=== PATIENT | female | born 1940 | race Caucasian/White ===

== ENCOUNTER 2016-08-30 10:52 | Outpatient (CLI) | payer MEDICARE, OTHER ==
[~2016-08-30] VITALS: Ht 165.1 cm; Wt 84.1 kg
[~2016-08-30 10:52] MED LIST: MULTI-DAY VITAM1 TAB PO; NORCO 10/325 TA1 TA1 PO; ZESTRIL40 MG PO
[2016-08-30] MEDS ORDERED: XARELTO20 MG PO (11:59)
[2016-08-30 12:01] VITALS: Ht 165.1 cm; Wt 84.1 kg
--- NOTE | 2016-08-30 12:03 | NUR ---
1150-60 MG OF PROLIA INJECTION GIVEN IN RIGHT ARM PT TOLERATED WELL LOT# [id number] EXP: 10/23 1200-PT DISCHARGED HOME IN STABLE CONDITION. WITHOUT ANY DIFFICULTIES. INFORMATION SHEETS FOR MEDICATION GIVEN. PT STATES UNDERSTANDING AND DISCHARGED HOMEIN STABLE CONDITION
== END 2016-08-30 12:00 | disposition home or self-care (01) ==
LOC: D.OPS 10:52
DX: M81.0 Age-related osteoporosis without current pathological fracture (principal)

== ENCOUNTER 2017-02-28 13:00 | Outpatient (CLI) | payer MEDICARE, OTHER ==
[~2017-02-28 13:00] MED LIST changes: +XARELTO20 MG PO
[2017-02-28 14:51] VITALS: BP 147/77; BMI 31.6
== END 2017-02-28 14:55 | disposition home or self-care (01) ==
LOC: D.OPS 13:00
DX: M81.0 Age-related osteoporosis without current pathological fracture (principal)

== ENCOUNTER 2017-09-04 10:41 | Outpatient (CLI) | payer MEDICARE, OTHER ==
[~2017-09-04] VITALS: Ht 165.1 cm; Wt 85.5 kg
[2017-09-04 10:53] VITALS: Ht 165.1 cm; Wt 85.5 kg
== END 2017-09-04 11:01 | disposition home or self-care (01) ==
LOC: D.OPS 10:41
DX: M81.0 Age-related osteoporosis without current pathological fracture (principal)

== ENCOUNTER 2018-03-12 12:26 | Outpatient (CLI) | payer MEDICARE, OTHER ==
[~2018-03-12] VITALS: Ht 162.6 cm; Wt 81.8 kg
[2018-03-12 13:26] VITALS: Ht 162.6 cm; Wt 81.8 kg
== END 2018-03-12 13:49 | disposition home or self-care (01) ==
LOC: D.OPS 12:26
DX: M81.0 Age-related osteoporosis without current pathological fracture (principal); Z01.812 Encounter for preprocedural laboratory examination

== ENCOUNTER 2018-09-10 12:22 | Outpatient (CLI) | payer MEDICARE, OTHER ==
[2018-03-12 13:26] VITALS: BMI 30.9
== END 2018-09-10 13:07 | disposition home or self-care (01) ==
LOC: D.OPS 12:22
PROVIDERS: ATTEND Family Medicine
DX: M81.0 Age-related osteoporosis without current pathological fracture (principal)

== ENCOUNTER 2019-11-02 17:13 | Inpatient (IN) | payer MEDICARE, OTHER ==
[~2019-11-02] VITALS: Ht 162.6 cm; Wt 79.4 kg
[2019-11-02 18:03] VITALS: BP 113/60
[2019-11-02 18:12] LABS: BASOPHILS 0.1 % (0-2); EOSINOPHILS 0.1 % (0-7); HEMATOCRIT 39.7 % (36.0-48.0); HEMOGLOBIN 12.8 g/dL (12-16); IMMATURE GRANULOCYTES 0.3 % (0-5); LYMPHOCYTES 6.6 % (15-50); MCHC 32.2 g/dL (31.0-37.0); MEAN PLATELET VOLUME 11.5 fL (7.4-10.4); MONOCYTES 8.5 % (2-11); NEUTROPHILS 84.4 % (40-80); RBC 4.41 10x6/uL (4.00-5.40); RDW 14.5 % (11.5-14.5)
[2019-11-02 18:13] LABS: PLATELET COUNT 161 10x3/uL (130-400)
[2019-11-02 18:15] LABS: ANION GAP 16.5 mmol/L (8-16); CALCIUM 8.6 mg/dL (8.5-10.1); CARBON DIOXIDE 22.4 mmol/L (21.0-32.0); CREATININE - SERUM 2.1 mg/dL (0.6-1.3); POTASSIUM - SERUM 4.9 mmol/L (3.5-5.1)
--- NOTE | 2019-11-02 18:31 | NUR ---
PT LEFT ED VIA [facility] FOR CT
[2019-11-02 18:36] LABS: ALBUMIN 3.4 g/dL (3.4-5.0); BILIRUBIN - TOTAL 1.28 mg/dL (0.2-1.3); PROTEIN - SERUM 6.9 g/dL (6.4-8.2)
[2019-11-02 18:41] LABS: TROPONIN-I 1.081 ng/mL (0.000-0.060)
[2019-11-02 19:00] VITALS: BP 106/65
[2019-11-02 19:09] LABS: APTT 51.3 SECONDS (22.8-39.4); INR 1.22 (0.85-1.17); PROTIME 15.3 SECONDS (11.6-15.0)
[2019-11-02 19:53] VITALS: BP 102/53
[2019-11-02 20:02] LABS: BILIRUBIN NEGATIVE (NEGATIVE); GLUCOSE NEGATIVE (NEGATIVE); KETONE NEGATIVE (NEGATIVE); NITRITE NEGATIVE (NEGATIVE); SPECIFIC GRAVITY 1.025 (1.005-1.020); UROBILINOGEN NORMAL (NORMAL)
[2019-11-02 20:06] LABS: BACTERIA MODERATE /hpf (NEGATIVE); EPITHELIAL CELLS 0-5 /hpf (0-5); RED CELLS - URINE NONE SEEN /hpf (0-5); WHITE CELLS - URINE 0-5 /hpf (NEGATIVE)
[2019-11-02 20:07] LABS: AMORPHOUS SEDIMENT >1+ /lpf (NONE SEEN)
[2019-11-02 21:05] VITALS: BP 100/44
--- NOTE | 2019-11-02 22:08 | NUR ---
NUCLEAR MEDICINE HERE TO TAKE PATIENT FOR LUNG SCAN.
[2019-11-02 23:55] LABS: CKMB 8.7 U/L (0.0-3.6); CREATINE KINASE 125 UL (21-215); TROPONIN-I 1.604 ng/mL (0.000-0.060)
--- NOTE | 2019-11-03 00:03 | NUR ---
PAGED DR. ROLON TO REPORT VQ SCAN RESULTS
--- NOTE | 2019-11-03 01:10 | HP ---
PATIENT: JEFF DOMINGUEZ MEDICAL RECORD: [id number] ACCOUNT: [id number] LOCATION:[address] : 42 ADMISSION DATE: 11/02/19 PCP: No PCP HISTORY AND PHYSICAL EXAMINATION CHIEF COMPLAINT: Left flank and abdominal pain. HISTORY OF PRESENT ILLNESS: This is a 79-year-old female who is followed by Dr. Jones for hypertension. She is followed by Dr. Roberson for left breast cancer and non-small cell lung cancer. She sees him monthly, but unfortunately, I do not have any notes where her lab in our office, but we will get them. She states that she was getting some physical therapy on her back about 4 days ago when experienced some chest pain then, maybe some shortness of breath, but she states this happens at the end of physical therapy, all that went away, but the next day, she started having this pain in the left flank area, wrapping around to the left upper quadrant of her abdomen. She states that it was accompanied at times over the last 3 days with some chest pain, a little shortness of breath, no cough, no muscle aches or pains. She states at times with certain movements the pain would take her breath away. This morning, though she got up to go the bathroom and she felt like she was going to pass out, she leaned forward. She felt weaker. She continued with his left-sided abdominal pain and her brought her in to the Emergency Department; evaluation there showed a normal CBC, basic metabolic panel was essentially normal except her creatinine is 2.1 (the last creatinine I could find was from [facility] over a year ago and it was around 1.0). Liver functions were okay. INR was okay. D-dimer was really high at 19.98 and troponin was elevated at 1.081. She is admitted for further evaluation. PAST MEDICAL HISTORY: Hypertension, she was diagnosed with left breast cancer in April 2015. She was then diagnosed with right upper lobe non-small cell lung cancer in June 2015. She had an extensive right lower extremity DVT in 2015 and was on Xarelto. PAST SURGICAL HISTORY: She has had both shoulder fractures repaired. She has had a hysterectomy. She had a left lumpectomy in April 2015 and she had a right upper lobe of the lung lobectomy done. She has had a port placement. ALLERGIES: DEMEROL AND REGLAN. CURRENT MEDICATIONS: She takes Letrozole 2.5 mg daily, another medicine prescribed by Dr. Roberson and lisinopril 40 mg twice a day. She has taken tramadol, prescribed by Dr. Roberson only rarely. She takes CoQ 10. SOCIAL HISTORY: , retired. HABITS: Former smoker, occasional alcohol, no illicit drug use. FAMILY HISTORY: Father of myocardial infarction. Mother in a car accident. Sister of breast cancer. REVIEW OF SYSTEMS: GENERAL: No major weight changes. HEENT: No particular sinus or allergy problems. RESPIRATORY: No history of emphysema or COPD, but she had the right upper lobe lung cancer. HISTORY AND PHYSICAL [id number] JEFF DOMINGUEZ P GASTROINTESTINAL: No significant reflux problems. She had a colonoscopy earlier this year by Dr. To. GENITOURINARY: No significant problems there. MUSCULOSKELETAL: No significant problems there. NEUROLOGIC: No migraines or seizures. PSYCHIATRIC: Denies depression or melancholia. PHYSICAL EXAMINATION: VITAL SIGNS: Temperature 97.7, heart rate 63, respirations 18, and blood pressure 100/44. GENERAL: She is awake and alert. She does not appear to be in acute distress at this time. SKIN: Warm and dry. is at bedside. HEENT: Grossly within normal limits. NECK: Supple. No JVD or bruit. HEART: Regular rate and rhythm without murmur. LUNGS: Clear. ABDOMEN: Soft, nontender. I cannot reproduce any of the pain that she has. EXTREMITIES: No edema. NEUROLOGIC: Grossly intact. LABORATORY DATA: Urinalysis shows yellow cloudy urine with 3+ protein, otherwise unremarkable. CBC with a white count of 9000, hemoglobin 12.8, and hematocrit 39.7. Basic metabolic panel: Sodium 136, potassium 4.9, chloride 102, CO2 22.4, BUN 24, creatinine 2.1, glucose 192, and calcium 8.6. Liver functions are okay. INR 1.22. D-dimer elevated at 19.98. Troponin elevated at 1.081. Amylase and lipase were all okay. IMAGING: Chest x-ray done showed patchy opacities in the right lung base laterally. There was a right upper lobe nodule that shows decreased size compared to previous chest x-ray. CT of the abdomen and pelvis without contrast showed scattered atelectasis in the lung bases did not mention the patchy opacities found in the chest x-ray. There was a "mass like" hyperdense area in or around the gallbladder and the pancreas showed atrophy. Ultrasound of the abdomen was done showed mild thickening of the gallbladder wall. This was nonspecific. A V/Q scan has just been done and patient just got back to her room when I came in and saw her. ASSESSMENT: 1. Left lower chest/left upper abdominal pain. 2. Elevated troponin. 3. Elevated D-dimer. 4. Elevated creatinine with unsure baseline. 5. History of left breast cancer. 6. History of right upper lobe non-small cell lung cancer. 7. History of extensive right lower extremity deep venous thrombosis. PLAN: We will follow up results of VQ scan. She is being treated as if she has PE placed on Lovenox at proper doses. Cardiology is being consulted for the elevated troponin. We need to try to get some previous labs from Dr. Roberson to see if he checks creatinine to see what her baseline is. will bring the 2 breasts cancer drugs from home tomorrow morning for her to resume and continue. Other tests and procedures as warranted. TRANSINT:[id number] Voice Confirmation ID: [id number] DOCUMENT ID: [id number] HISTORY AND PHYSICAL [id number] JEFF DOMINGUEZ WILLIAM MD at 0110 CC: [id number] DICTATION DATE: 11/02/192323 INDEPENDENT CONTRACTOR: 11/03/19 0007 ADM IN [facility] [address] [id number]
--- NOTE | 2019-11-03 01:16 | NUR ---
RECEIVED PATIENT PATIENT TO ROOM 2101 VIA STRETCHER @ 2145. PATIENT IS AAOX4, UP WITH MINIAL ASSISTANCE. IV TO RT CHEST INFUSAPORT INFUSING NS @ 75ML/HR. NO S/S OF DISTRESS OBSERVED, RR EVEN AND UNLABORED ON 2L O2 VIA NC. PATIENT DENIES NEEDS AT THIS TIME. QUICK START, MED REC, ADULT HX, SRS, FPOC ALL COMPLETED. TELEMTRY APPLIED. CL IN REACH, BED LOCKED AND LOWERED. WILL CTM.
[2019-11-03 03:44] VITALS: BP 118/51; BMI 30.1
[2019-11-03 04:30] VITALS: BP 91/48
[2019-11-03 05:28] LABS: BASOPHILS 0.1 % (0-2); EOSINOPHILS 0 % (0-7); HEMATOCRIT 37.3 % (36.0-48.0); HEMOGLOBIN 11.7 g/dL (12-16); IMMATURE GRANULOCYTES 0.4 % (0-5); LYMPHOCYTES 14.5 % (15-50); MCH 28.7 pg (26.0-34.0); MCHC 31.4 g/dL (31.0-37.0); MCV 91.4 fL (80.0-100.0); PLATELET COUNT 161 10x3/uL (130-400); RBC 4.08 10x6/uL (4.00-5.40); WBC 8.5 10x3/uL (4.8-10.8)
[2019-11-03 05:58] LABS: CALCIUM 7.7 mg/dL (8.5-10.1); CARBON DIOXIDE 24.7 mmol/L (21.0-32.0); CHLORIDE - SERUM 105 mmol/L (98-107); CKMB 7.9 U/L (0.0-3.6); CREATINE KINASE 105 UL (21-215); SODIUM 137 mmol/L (136-145); UREA NITROGEN 29 mg/dL (7-18)
[2019-11-03 06:05] LABS: CALC OSMOLALITY 281 mosm/kg (275-300); CREATININE - SERUM 2.9 mg/dL (0.6-1.3); GLUCOSE 133 mg/dL (74-106)
[2019-11-03 06:06] LABS: TROPONIN-I 1.577 ng/mL (0.000-0.060); eGFR NON AFRICAN AMERICAN 17 mL/min (90-120)
[2019-11-03 06:08] LABS: POTASSIUM - SERUM 6.2 mmol/L (3.5-5.1)
--- NOTE | 2019-11-03 06:09 | NUR ---
LAB CALLED WITH CRITICAL POTASSIUM OF 6.2
[2019-11-03 09:00] VITALS: BP 113/58
[2019-11-03 09:25] LABS: ANION GAP 15.5 mmol/L (8-16); CALCIUM 7.7 mg/dL (8.5-10.1); CREATININE - SERUM 3.2 mg/dL (0.6-1.3); POTASSIUM - SERUM 5.5 mmol/L (3.5-5.1)
[2019-11-03 11:00] VITALS: BP 110/52
[2019-11-03] MEDS ORDERED: TAGRISSO PO (12:40)
[2019-11-03] MEDS ORDERED: LETROZOLE PO (12:43)
[2019-11-03 15:00] VITALS: BP 102/45
--- NOTE | 2019-11-03 17:31 | NUR ---
I have reviewed this patient and I concur with the Shift Assessment completed by the Licensed Practical Nurse today this shift.
--- NOTE | 2019-11-03 18:00 | NUR ---
PT HAS BEEN ALERT AND ORIENTED ALL DAY. AFTER SEEING ALL HER CONSULTING AND PRIMARY DOCTORS THIS AM, PT WAS PROVIDED WITH MEALS. HAS VOMMITED TWICE BUT OTHERWISE WITH MODERATE NAUSEA BUT SO FAR TOLERATING SUPPER WELL. C/O PAIN IN HER LEFT RIB AREA WHICH SHE BELIEVES IS D/T TO THE ECHO THIS MORNING. CAME OT BEDSIDE FOR SEVERAL HOURS. SPOKE TO DR. PEREA, ORDERED PRN PAIN MEDS PER HIS ORDER. NO CURRENT COMPLAINTS/CONCERNS, ALL QUESTIONS ANSWERED TO THE BEST OF MY ABILITY. CL IN REACH, SRX2.
--- NOTE | 2019-11-03 19:00 | NUR ---
REPORT RECEIVED, WILL CONTINUE POC. PATIENT IS AAOX4, LYING IN SEMI-FOWLERS POSITION. NO S/S OF DISTRESS OBSERVED, RR EVEN AND UNLABORED ON 2L O2 VIA NC. AT BEDSIDE. PATIENT DENIES NEEDS AT THIS TIME. CL IN REACH, BED LOCKED AND LOWERED. WILL CTM.
[2019-11-03 20:08] VITALS: Ht 162.6 cm; Wt 79.4 kg
[2019-11-03 21:21] VITALS: BP 113/70
[2019-11-04 01:04] VITALS: BP 105/50
[2019-11-04 04:00] VITALS: BP 123/60
[2019-11-04 04:23] LABS: BASOPHILS 0.1 % (0-2); EOSINOPHILS 0.5 % (0-7); HEMATOCRIT 34.6 % (36.0-48.0); HEMOGLOBIN 10.7 g/dL (12-16); IMMATURE GRANULOCYTES 0.5 % (0-5); LYMPHOCYTES 13.6 % (15-50); MCH 28.5 pg (26.0-34.0); MCHC 30.9 g/dL (31.0-37.0); MCV 92.3 fL (80.0-100.0); MEAN PLATELET VOLUME 11.2 fL (7.4-10.4); NEUTROPHILS 69.3 % (40-80); PLATELET COUNT 138 10x3/uL (130-400); RBC 3.75 10x6/uL (4.00-5.40); RDW 14.9 % (11.5-14.5); WBC 7.6 10x3/uL (4.8-10.8)
[2019-11-04 04:54] LABS: ALBUMIN 2.8 g/dL (3.4-5.0); ANION GAP 14.8 mmol/L (8-16); BILIRUBIN - TOTAL 0.41 mg/dL (0.2-1.3); CALCIUM 7.1 mg/dL (8.5-10.1); CARBON DIOXIDE 21.6 mmol/L (21.0-32.0); POTASSIUM - SERUM 5.4 mmol/L (3.5-5.1); PROTEIN - SERUM 5.9 g/dL (6.4-8.2); URIC ACID 8.5 mg/dL (2.6-7.2)
[2019-11-04 05:03] LABS: CREATININE - SERUM 4.2 mg/dL (0.6-1.3)
--- NOTE | 2019-11-04 08:00 | NUR ---
PT RECEIVED AWAKE AND ALERT. COMPLAINTS OF PAIN. MED GIVEN. ZOFRAN GTT STARTED.
[2019-11-04 09:00] VITALS: BP 124/61
[2019-11-04 11:00] VITALS: BP 105/57
[2019-11-04 15:00] VITALS: BP 95/53
--- NOTE | 2019-11-04 19:10 | NUR ---
PT EDUCATED ON PAIN MED USE AND PAIN MEDS REGARDED TOMORROWS PROCEDURE BED LOW AND LOCKED OTHER NEEDS SEEN TO
[2019-11-04 20:00] VITALS: BP 120/60
[2019-11-05] VITALS: BP 128/58
[2019-11-05 04:00] VITALS: BP 143/69
[2019-11-05 04:53] LABS: BASOPHILS 0.1 % (0-2); EOSINOPHILS 0.7 % (0-7); HEMATOCRIT 34.1 % (36.0-48.0); HEMOGLOBIN 10.7 g/dL (12-16); IMMATURE GRANULOCYTES 0.4 % (0-5); LYMPHOCYTES 14.6 % (15-50); MCH 29.1 pg (26.0-34.0); MCHC 31.4 g/dL (31.0-37.0); MCV 92.7 fL (80.0-100.0); MEAN PLATELET VOLUME 11.3 fL (7.4-10.4); NEUTROPHILS 67.2 % (40-80); RBC 3.68 10x6/uL (4.00-5.40); RDW 14.7 % (11.5-14.5); WBC 7.1 10x3/uL (4.8-10.8)
[2019-11-05 04:57] LABS: PLATELET COUNT 177 10x3/uL (130-400)
[2019-11-05 05:00] LABS: ANION GAP 15.5 mmol/L (8-16); CARBON DIOXIDE 19.3 mmol/L (21.0-32.0); CREATININE - SERUM 3.8 mg/dL (0.6-1.3); POTASSIUM - SERUM 4.8 mmol/L (3.5-5.1)
--- NOTE | 2019-11-05 08:30 | NUR ---
PT WENT FOR GASTRIC EMPTYING SCAN
--- NOTE | 2019-11-05 10:30 | NUR ---
PT BACK FROM GASTRIC EMPTYING NO PROBLEMS TOLERATED WELL
[2019-11-05 11:08] VITALS: BP 126/54
--- NOTE | 2019-11-05 12:17 | NUR ---
Nutrition Follow-up: Pt not in room at time of visit this AM. NPO for GES. Diet: NPO PO intake: 58% avg yesterday Wt: 175# (11/02) Labs noted: Glu 116, Ca 7.0, K+ 4.8 Meds noted: Zofran, Pepcid, NS @ 75, electrolyte protocol -Rec resume diet following procedure as medically feasible. -Monitor wt. -RD following.
[2019-11-05 13:09] VITALS: BP 136/70
[2019-11-05 14:10] LABS: ACLA - IGG AB <9 GPL U/mL (0-14); ACLA - IGM AB <9 MPL U/mL (0-12); ANA REFLEX - DIRECT Negative (Negative)
--- NOTE | 2019-11-05 15:53 | NUR ---
I have reviewed this patient and I concur with the Shift Assessment completed by the Licensed Practical Nurse today this shift.
--- NOTE | 2019-11-05 19:00 | NUR ---
REPORT RECEIVED, WILL CONTINUE POC. PATIENT IS AAOX4, SITTING UP IN BED. NO S/S OF DISTRESS OBSERVED. RR EVEN AND UNLABORED ON 2L O2 VIA NC. PATIENT WANTS PRN TRAMADOL WITH HS MEDS. PATIENT DENIES FURTHER NEEDS AT THIS TIME. CL IN REACH, BED LOCKED AND LOWERED. WILL CTM.
[2019-11-05 20:00] VITALS: BP 135/56
[2019-11-06] VITALS: BP 131/76
--- NOTE | 2019-11-06 03:51 | NUR ---
I have reviewed this patient and I concur with the Shift Assessment completed by the Licensed Practical Nurse today this shift.
[2019-11-06 04:00] VITALS: BP 140/55
[2019-11-06 05:17] LABS: ANION GAP 14.6 mmol/L (8-16); CARBON DIOXIDE 22.4 mmol/L (21.0-32.0); CREATININE - SERUM 3.1 mg/dL (0.6-1.3)
[2019-11-06 05:39] LABS: BASOPHILS 0 % (0-2); EOSINOPHILS 1.3 % (0-7); HEMATOCRIT 32.3 % (36.0-48.0); HEMOGLOBIN 10.1 g/dL (12-16); IMMATURE GRANULOCYTES 0.6 % (0-5); LYMPHOCYTES 12.8 % (15-50); MCH 28.8 pg (26.0-34.0); MCHC 31.3 g/dL (31.0-37.0); MEAN PLATELET VOLUME 11.5 fL (7.4-10.4); MONOCYTES 19.2 % (2-11); NEUTROPHILS 66.1 % (40-80); PLATELET COUNT 153 10x3/uL (130-400); RBC 3.51 10x6/uL (4.00-5.40); RDW 14.8 % (11.5-14.5)
[2019-11-06 05:40] LABS: WBC 5.2 10x3/uL (4.8-10.8)
[2019-11-06 05:43] LABS: CALCIUM 6.6 mg/dL (8.5-10.1)
[2019-11-06 09:46] VITALS: BP 156/76
--- NOTE | 2019-11-06 10:30 | NUR ---
LABS DRAWN FROM PORT AND SENT WITH LAB.
[2019-11-06 11:08] LABS: PHOSPHOROUS 2.6 mg/dL (2.5-4.9)
[2019-11-06 12:00] VITALS: BP 161/74
[2019-11-06 16:00] VITALS: BP 135/85
[2019-11-07] VITALS: BP 160/78
[2019-11-07 04:00] VITALS: BP 167/81
[2019-11-07 04:08] LABS: LUPUS - INTERPRETATION Comment: (()); LUPUS - THROMBIN TIME 14.3 sec (0.0-23.0); LUPUS - dRVVT 40.2 sec (0.0-47.0); PTT-LA 49.1 sec (0.0-51.9)
[2019-11-07 05:34] LABS: BASOPHILS 0.2 % (0-2); EOSINOPHILS 1.9 % (0-7); HEMATOCRIT 32.6 % (36.0-48.0); HEMOGLOBIN 10.2 g/dL (12-16); IMMATURE GRANULOCYTES 0.4 % (0-5); LYMPHOCYTES 18.4 % (15-50); MCH 28.4 pg (26.0-34.0); MCHC 31.3 g/dL (31.0-37.0); MCV 90.8 fL (80.0-100.0); MEAN PLATELET VOLUME 11.2 fL (7.4-10.4); MONOCYTES 16.5 % (2-11); NEUTROPHILS 62.6 % (40-80); PLATELET COUNT 183 10x3/uL (130-400); RBC 3.59 10x6/uL (4.00-5.40); RDW 14.5 % (11.5-14.5); WBC 4.8 10x3/uL (4.8-10.8)
[2019-11-07 05:40] LABS: ANION GAP 13.8 mmol/L (8-16); CARBON DIOXIDE 22.7 mmol/L (21.0-32.0); POTASSIUM - SERUM 4.5 mmol/L (3.5-5.1)
[2019-11-07 06:04] LABS: CREATININE - SERUM 2.2 mg/dL (0.6-1.3)
[2019-11-07 09:26] VITALS: BP 166/82
--- NOTE | 2019-11-07 11:04 | NUR ---
PATIENT IS NPO FOR PIPIDA SCAN AROUND 1400 TODAY. LAST ULTRAM WAS 0445. STATES TO HAVING UPPER ABDOMINAL ISSUES X COUPLE MONTHS. RIGHT INFUSAPORT SEEN WITH NS INFUSING AT 75 CC/HR, ZOFRAN GTT INFUSING AT 4.7 CC/HR. STATES TO SILL HAVING SOME SLIGHT NAUSEA. ON HEART MONITOR SHOWING CAF, HR 85. ON EP, K+ IS 4.5. ON 2L PER NC, STATES TO NOT WEARING OXYGEN AT HOME. CPOC, REFUSED TO WEAR NON SKID SOCKS.
--- NOTE | 2019-11-07 11:07 | NUR ---
Nutrition Follow-up: Pt still not eating well and continues to report N/V. GES on 11/04 consistent with delayed gastric emptying. Pt reports last BM 11/04; +flatus. Agreed to try Nepro at lunch today. Diet: Renal Wt: 175# (11/02) Labs noted: K+ 4.5, Ca 7.0 Meds noted: Zofran, Pepcid, NS @ 75, electrolyte protocol -Encourage PO intake and honor food preferences within diet restrictions. -Send Nepro with lunch today for pt trial. -Monitor wt. -RD following.
[2019-11-07 11:10] LABS: PROTEIN S - FREE 52 % (57-157); PROTEIN S - FUNCTIONAL 42 % (63-140); PROTEIN S - TOTAL 88 % (60-150)
[2019-11-07 12:00] VITALS: BP 178/84
[2019-11-07 12:10] LABS: ANTITHROMBIN III ACTIVITY 104 % (75-135); PLASMINOGEN ACTIVITY 94 % (70-150)
--- NOTE | 2019-11-07 14:00 | NUR ---
STILL AWAITING PIPIDA SCAN, NPO. SPOUSE AT BEDSIDE.
--- NOTE | 2019-11-07 15:03 | NUR ---
I CALLED TO RADIOLOGY TO SEE HOW MUCH LONGER FOR PIPIDA SCAN. THEY STATE THEY SHOULD BE HERE SHORTLY FOR HER. THIS IS RELAYED TO THE PATIENT.
[2019-11-07 15:11] LABS: MITOCHONDRIAL ANTIBODY <20.0 Units (0.0-20.0)
--- NOTE | 2019-11-07 16:26 | MORECARE ---
CASE MANAGEMENT DISCHARGE SUMMARY PATIENT: JEFF DOMINGUEZ UNIT: [id number] ADM DATE: 11/02/19 AGE: 79 : 42 SEX: F ROOM/BED: D.6329 AUTHOR: NICOLE,DOC PHYSICIAN: REFERRING PHYSICIAN: ROSE ANTONIO MD DATE OF SERVICE: 11/07/19 Discharge Plan Patient Name: JEFF DOMINGUEZ Facility: [facility]:[place] : 1940 Planned Disposition: Home Anticipated Discharge Date: Discharge Date: Expected LOS: Initial Reviewer: [email or web address] Initial Review Date: 11/02/2019 Generated: 11/07/19 5:25 pm Comments DCP- Discharge Planning Updated by [email or web address]: Nay Gonzalez on 11/07/19 3:[address] Patient Name: JEFF DOMINGUEZ Admission Status: ER Accout number: [id number] Admission Date: 11-02-2019 : 1940 Admission Diagnosis:UNSPECIFIED ABDOMINAL PAIN Attending: ROSE ANTONIO Current LOS: 5 Anticipated DC Date: Planned Disposition: Home Primary Insurance: MEDICARE A & B Discharge Planning Comments: CM met with patient's spouse Gigi to complete initial dc planning assessment. CM educated patient on the CM role and verbal consent given by patient to complete assessment. Patient lives at home with family. Patient is independent. At discharge patient plans to return home and feels this is a safe discharge. CM discussed availability of home health, rehab services, and medical equipment. Patient will have family to transport home. Patient denied known discharge needs at this time. CM will continue to follow and will assist as needed with dc plans/needs. Mixer Foam Rubber: Nay Gonzalez DCP- Discharge Planning Updated by [email or web address]: Tatianna Sterling on 11/07/19 8:[address] CM has attempted X2 to see patient, but busy each time. DCPIA - Discharge Planning Initial Assessment Updated by [email or web address]: Nay Gonzalez on 11/07/19 4:21 pm * Is the patient Alert and Oriented? Yes * How many steps to enter\exit or inside your home? * PCP PACO * [facility] * Preadmission Environment Home with Family * ADLs Independent * Equipment None * List name and contact numbers for known caregivers / representatives who currently or will assist patient after discharge: GIGI DOMINGUEZ - SPOUSE - [phone] * Verbal permission to speak to the caregivers and representatives has been obtained from the patient. Yes * Community resources currently utilized None * Additional services required to return to the preadmission environment? No * Can the patient safely return to the preadmission environment? Yes * Has this patient been hospitalized within the prior 30 days at any hospital? No Patient Name: JEFF DOMINGUEZ Page [phone] at 1626 All edits/amendments must be made on the electronic document DICTATION DATE: 11/07/191624 TAPING SUPERVISOR: PATRICIA 11/07/191624 RPT#: [id number] DC DATE: STATUS: ADM IN [facility] [address] [place] [address] END OF REPORT
--- NOTE | 2019-11-07 19:45 | NUR ---
PT IN BED, AAO X 3, RESP EVEN AND UNLABORED. NO DISTRESS NOTED, CL IN REACH, SR UP X 2.
[2019-11-07 20:00] VITALS: BP 142/44
[2019-11-08 04:00] VITALS: BP 133/63
--- NOTE | 2019-11-08 07:00 | NUR ---
A&O, RESTING IN BED WITH EYES OPEN. NO C/O PAIN. NO S/S OF ACUTE DISTRESS NOTED. C/O NAUSEA, PATIENT STATED "I DON'T THINK THE ZOFRAN IS WORKING." ON 2L O2, NC. RIGHT CHEST PORT, NS INFUSING @ 75ML/HR AND ZOFRAN @ 4.7. SITE PATENT WITHOUT REDNESS OR SWELLING. ON TELEMETRY 79 CONTROLLED A-FIB. RESERVE LEFT ARM. DENIES ANY NEEDS AT THIS TIME. CALL LIGHT IN REACH. WILL CONTINUE TO MONITOR.
--- NOTE | 2019-11-08 07:29 | NUR ---
I have reviewed this patient and I concur with the Shift Assessment completed by the Licensed Practical Nurse today this shift.
[2019-11-08 09:00] VITALS: BP 161/77
[2019-11-08 10:40] LABS: CARBON DIOXIDE 23.4 mmol/L (21.0-32.0)
[2019-11-08 10:41] LABS: ANION GAP 12.3 mmol/L (8-16); CREATININE - SERUM 1.5 mg/dL (0.6-1.3); POTASSIUM - SERUM 3.7 mmol/L (3.5-5.1)
[2019-11-08 10:42] LABS: CALCIUM 6.6 mg/dL (8.5-10.1)
[2019-11-08 11:00] VITALS: BP 168/84
[2019-11-08 15:00] VITALS: BP 168/81
--- NOTE | 2019-11-08 17:44 | NUR ---
I have reviewed this patient and I concur with the Shift Assessment completed by the Licensed Practical Nurse today this shift.
--- NOTE | 2019-11-08 18:10 | NUR ---
ALERT AND ORIENTED. RESTING IN BED WATCHING TV. NO C/O PAIN. NO S/S OF ACUTE DISTRESS NOTED. PATIENT STATED THAT THE COMPAZINE HAS HELPED TREMENDOUSLY TODAY. DENIES ANY NEEDS AT THIS TIME. CALL LIGHT IN REACH. WILL CONTINUE TO MONITOR.
--- NOTE | 2019-11-08 19:22 | NUR ---
RECCIEVED UP IN BED WITH EYES OPEN ANDF TV ON. ALERTY AND ORIENTED X4. UP AD DES TO B/R. O2@ 2 LITERS PER N/C. PORT TO RT CHEST WITH NS INFUSING AT 75CC/HR. TELEMETRY IN PLACE. DENIES ANY NEEDS AT THIS TIME.
[2019-11-08 20:00] VITALS: BP 157/76
[2019-11-09] VITALS: BP 185/74
[2019-11-09 04:00] VITALS: BP 171/78
[2019-11-09 05:35] LABS: BASOPHILS 0.2 % (0-2); EOSINOPHILS 2.3 % (0-7); HEMATOCRIT 32.2 % (36.0-48.0); HEMOGLOBIN 10.2 g/dL (12-16); IMMATURE GRANULOCYTES 1.1 % (0-5); LYMPHOCYTES 19.5 % (15-50); MCH 28.3 pg (26.0-34.0); MCHC 31.7 g/dL (31.0-37.0); MCV 89.4 fL (80.0-100.0); MEAN PLATELET VOLUME 10.5 fL (7.4-10.4); MONOCYTES 18.9 % (2-11); PLATELET COUNT 188 10x3/uL (130-400); RDW 14.4 % (11.5-14.5); WBC 4.8 10x3/uL (4.8-10.8)
[2019-11-09 05:57] LABS: ANION GAP 11.8 mmol/L (8-16); CALCIUM 7.6 mg/dL (8.5-10.1); CARBON DIOXIDE 24.8 mmol/L (21.0-32.0); CREATININE - SERUM 1.4 mg/dL (0.6-1.3); POTASSIUM - SERUM 3.6 mmol/L (3.5-5.1)
[2019-11-09 08:31] VITALS: BP 190/80
[2019-11-09 13:20] VITALS: BP 166/75
--- NOTE | 2019-11-09 18:14 | NUR ---
PT DID WALK TEST WITH RT AND DID NOT QUALIFY FOR OXYGEN. ON ROOM AIR NOW. HAVING SOME CONSTIPATION. DR BANG AND ORDER FOR SUPPOSITORY GIVEN.
[2019-11-09 18:29] VITALS: BP 157/67
--- NOTE | 2019-11-09 19:29 | NUR ---
RECIEVED UP IN BED WITH EYES OPEN AND TV ON. ALERT AND ORIENTED X4. UP AD DES TO B/R.O2@ 2 LITERS PER N/C. PORT TO RT CHEST WITH ZOFRAN AN NS INFUSING. BLE EDEMA. TELEMETRY IN PLACE. LT ARM RESERVED D/T MASCETOMY. DENIES ANY NEEDS AT THIS TIME.
[2019-11-10 00:30] VITALS: BP 166/80
[2019-11-10 05:00] VITALS: BP 177/80
[2019-11-10 07:35] VITALS: BP 175/78
[2019-11-10] MEDS ORDERED: ELIQUIS5 MG PO (08:20)
[2019-11-10] MEDS ORDERED: NORVASC5 MG PO (08:20)
[2019-11-10] MEDS ORDERED: LISINOPRIL10 MG PO (08:21)
[2019-11-10] MEDS ORDERED: ULTRAM50 MG PO (08:22)
[2019-11-10] MEDS ORDERED: PEPCID40 MG PO (08:23)
--- NOTE | 2019-11-10 10:29 | MORECARE ---
CASE MANAGEMENT DISCHARGE SUMMARY PATIENT: LOLIS DOMINGUEZ UNIT: [id number] ADM DATE: 11/02/19 AGE: 79 : 42 SEX: F ROOM/BED: D.9662 AUTHOR: NICOLE,DOC PHYSICIAN: REFERRING PHYSICIAN: ROSE ANTONIO MD DATE OF SERVICE: 11/10/19 Discharge Plan Patient Name: LOLIS DOMINGUEZ Facility: [facility]:[place] : 1940 Planned Disposition: Home Anticipated Discharge Date: Discharge Date: Expected LOS: Initial Reviewer: [email or web address] Initial Review Date: 11/02/2019 Generated: 11/10/19 11:28 am Comments DCP- Discharge Planning Updated by [email or web address]: Tatianna Sterling on 11/10/19 9:[address] Patient voices no needs regarding DC. DC IMM signed. Spouse is at bedside and will transfer patient home. DCP- Discharge Planning Updated by [email or web address]: Nay Gonzalez on 11/07/19 3:[address] Patient Name: LOLIS DOMINGUEZ Admission Status: ER Accout number: [id number] Admission Date: 11-02-2019 : 1940 Admission Diagnosis:UNSPECIFIED ABDOMINAL PAIN Attending: ROSE ANTONIO Current LOS: 5 Anticipated DC Date: Planned Disposition: Home Primary Insurance: MEDICARE A & B Discharge Planning Comments: CM met with patient's spouse Gigi to complete initial dc planning assessment. CM educated patient on the CM role and verbal consent given by patient to complete assessment. Patient lives at home with family. Patient is independent. At discharge patient plans to return home and feels this is a safe discharge. CM discussed availability of home health, rehab services, and medical equipment. Patient will have family to transport home. Patient denied known discharge needs at this time. CM will continue to follow and will assist as needed with dc plans/needs. Client Manager Large Law: Nay Gonzalez DCP- Discharge Planning Updated by [email or web address]: Tatianna Sterling on 11/07/19 8:[address] CM has attempted X2 to see patient, but busy each time. DCPIA - Discharge Planning Initial Assessment Updated by [id number]: Nay Gonzalez on 11/07/19 4:21 pm * Is the patient Alert and Oriented? Yes * How many steps to enter\exit or inside your home? * PCP PACO * Pharmacy [facility] * Preadmission Environment Home with Family * ADLs Independent * Equipment None * List name and contact numbers for known caregivers / representatives who currently or will assist patient after discharge: GIGI DOMINGUEZ - SPOUSE - [phone] * Verbal permission to speak to the caregivers and representatives has been obtained from the patient. Yes * Community resources currently utilized None * Additional services required to return to the preadmission environment? No * Can the patient safely return to the preadmission environment? Yes * Has this patient been hospitalized within the prior 30 days at any hospital? No Coverage Notice Reviewer: [email or web address] Ania Sterling Notice Issued Date-Time: 11/10/2019 10:22 Notice Type: IM Discharge Notice Notice Delivered To: Patient Relationship to Patient: Self Coil Placer Name: Lolis Dominguez Delivery Method: HAND - Hand Delivered Dinah Days: Prior Verbal Notification: Recipient Understood Notice: Yes Recipient Signature: Yes Med Rec Note Co-signed by Attending: Coverage Notice Comment: DC IMM signed and given to patient. Original to chart. Last DP export: 11/07/19 3:26 pm Patient Name: LOLIS DOMINGUEZ Page 29416 at 1029 All edits/amendments must be made on the electronic document DICTATION DATE: 11/10/19 1028 DELICATESSEN CLERK: PATRICIA 11/10/19 1028 RPT#: [id number] DC DATE: STATUS: ADM IN [facility] [address] [place] [address] END OF REPORT
--- NOTE | 2019-11-10 10:54 | NUR ---
DISCHARGE INSTRUCTIONS GIVEN TO PT AND TEACHING DONE WITH PT AND PT'S SPOUSE. PT HAS NO FURTHER QUESTIONS. CHART COPY SIGNED. RIGHT CHEST IP FLUSHED WITH NS AND DC'D IP AND PLACED 4X4 AND TEGADERM. TELEMETRY DC'D.
--- NOTE | 2019-11-10 11:22 | NUR ---
PT TAKEN OUT THROUGH ER [facility] VIA WC BY DIRECTOR MANUFACTURING ENGINEERING WITH ALL BELONGINGS AND ELFT WITH SPOUSE IN PERSONAL VEHICLE.
[2019-11-10 13:09] LABS: PROTEIN C - ANTIGEN 101 % (60-150); PROTEIN C - FUNCTIONAL 110 % (73-180)
[2019-11-10 15:10] LABS: ANCA - ANTIMYELOPEROXIDASE <9.0 U/mL (0.0-9.0); ANCA - ANTIPROTEINASE 3 <3.5 U/mL (0.0-3.5); ANCA - ATYPICAL <1:20 titer (Neg:<1:20); ANCA - CYTOPLASMIC <1:20 titer (Neg:<1:20); ANCA - PERINUCLEAR <1:20 titer (Neg:<1:20)
--- NOTE | 2019-11-12 17:39 | MORECARE ---
CASE MANAGEMENT DISCHARGE SUMMARY PATIENT: LOLIS DOMINGUEZ UNIT: [id number] ADM DATE: 11/02/19 AGE: 79 : 42 SEX: F ROOM/BED: D.7753 AUTHOR: NICOLE,DOC PHYSICIAN: REFERRING PHYSICIAN: ROSE ANTONIO MD DATE OF SERVICE: 11/12/19 Discharge Plan Patient Name: LOLIS DOMINGUEZ Facility: [facility]:[place] : 1940 Planned Disposition: Home Anticipated Discharge Date: 11/10/19 Discharge Date: 11/10/2019 Expected LOS: 8 Initial Reviewer: [email or web address] Initial Review Date: 11/02/2019 Generated: 11/12/19 6:39 pm Comments DCP- Discharge Planning Updated by [email or web address]: Tatianna Sterling on 11/10/19 9:[address] Patient voices no needs regarding DC. DC IMM signed. Spouse is at bedside and will transfer patient home. DCP- Discharge Planning Updated by [email or web address]: Nay Gonzalez on 11/07/19 3:[address] Patient Name: LOLIS DOMINGUEZ Admission Status: ER Accout number: [id number] Admission Date: 11-02-2019 : 1940 Admission Diagnosis:UNSPECIFIED ABDOMINAL PAIN Attending: ROSE ANTONIO Current LOS: 5 Anticipated DC Date: Planned Disposition: Home Primary Insurance: MEDICARE A & B Discharge Planning Comments: CM met with patient's spouse Gigi to complete initial dc planning assessment. CM educated patient on the CM role and verbal consent given by patient to complete assessment. Patient lives at home with family. Patient is independent. At discharge patient plans to return home and feels this is a safe discharge. CM discussed availability of home health, rehab services, and medical equipment. Patient will have family to transport home. Patient denied known discharge needs at this time. CM will continue to follow and will assist as needed with dc plans/needs. Intelligence Support Officer: Nay Gonzalez DCP- Discharge Planning Updated by [id number]: Tatianna Sterling on 11/07/19 8:[address] CM has attempted X2 to see patient, but busy each time. DCPIA - Discharge Planning Initial Assessment Updated by [email or web address]: Nay Gonzalez on 11/07/19 4:21 pm * Is the patient Alert and Oriented? Yes * How many steps to enter\exit or inside your home? * PCP PACO * Pharmacy [facility] * Preadmission Environment Home with Family * ADLs Independent * Equipment None * List name and contact numbers for known caregivers / representatives who currently or will assist patient after discharge: GIGI DOMINGUEZ - [facility] - [phone] * Verbal permission to speak to the caregivers and representatives has been obtained from the patient. Yes * Community resources currently utilized None * Additional services required to return to the preadmission environment? No * Can the patient safely return to the preadmission environment? Yes * Has this patient been hospitalized within the prior 30 days at any hospital? No Coverage Notice Reviewer: [email or web address] Ania Sterling Notice Issued Date-Time: 11/10/2019 10:22 Notice Type: IM Discharge Notice Notice Delivered To: Patient Relationship to Patient: Self Line Haul Owner Operator Name: Lolis Dominguez Delivery Method: HAND - Hand Delivered Dinah Days: Prior Verbal Notification: Recipient Understood Notice: Yes Recipient Signature: Yes Med Rec Note Co-signed by Attending: Coverage Notice Comment: DC IMM signed and given to patient. Original to chart. Last DP export: 11/10/19 9:29 am Patient Name: LOLIS DOMINGUEZ Page 17266 at 1739 All edits/amendments must be made on the electronic document DICTATION DATE: 11/12/191738 WARP HAULER: PATRICIA 11/12/19 1739 RPT#: [id number] DC DATE:11/10/19 STATUS: DIS IN [facility] [address] [place] [address] END OF REPORT
== END 2019-11-10 11:22 | disposition home or self-care (01) | DRG 175 ==
LOC: D.ER 17:13 → D.M2 20:06
PROVIDERS: Emergency Medicine; Family Medicine; Internal Medicine Nephrology; ADMIT Family Medicine; ATTEND Family Medicine
DX: I26.99 Other pulmonary embolism without acute cor pulmonale (principal); I21.A1 Myocardial infarction type 2; N17.9 Acute kidney failure, unspecified; N39.0 Urinary tract infection, site not specified; I82.402 Acute embolism and thrombosis of unspecified deep veins of left lower extremity; R79.89 Other specified abnormal findings of blood chemistry; E87.5 Hyperkalemia; I10 Essential (primary) hypertension; E86.0 Dehydration; K31.84 Gastroparesis; B96.20 Unspecified Escherichia coli [E. coli] as the cause of diseases classified elsewhere; Z79.01 Long term (current) use of anticoagulants; Z85.3 Personal history of malignant neoplasm of breast; Z85.118 Personal history of other malignant neoplasm of bronchus and lung; Z86.718 Personal history of other venous thrombosis and embolism

== ENCOUNTER → 2020-09-16 10:51 | Outpatient (CLI) | payer MEDICARE, OTHER ==
[~2020-09-16 10:51] MED LIST changes: +ELIQUIS5 MG PO; +LETROZOLE PO; +LISINOPRIL10 MG PO; +NORVASC5 MG PO; +PEPCID40 MG PO; +TAGRISSO PO; +ULTRAM50 MG PO
== END | disposition home or self-care (01) ==
LOC: D.MRI 10:51
PROVIDERS: ATTEND Internal Medicine Medical Oncology
DX: C50.512 Malignant neoplasm of lower-outer quadrant of left female breast (principal); C34.11 Malignant neoplasm of upper lobe, right bronchus or lung; C77.1 Secondary and unspecified malignant neoplasm of intrathoracic lymph nodes; C79.51 Secondary malignant neoplasm of bone; Z51.11 Encounter for antineoplastic chemotherapy; R60.0 Localized edema; M25.552 Pain in left hip; M25.562 Pain in left knee